=== PATIENT | female | born 1945 | race African-American/Black ===

== ENCOUNTER 2018-07-31 16:49 | Inpatient (IN) | payer OTHER ==
[~2018-07-31] VITALS: Ht 165.1 cm; Wt 71.7 kg
[2018-07-31 17:39] LABS: BASOPHILS % 0.8 % (0.0-2.0); EOSINOPHILS % 0.8 % (0.0-5.0); HEMATOCRIT. 23.6 % (36.0-48.0); HEMOGLOBIN. 7.8 g/dL (12.0-16.0); LYMPHOCYTES % 14.3 % (20.0-50.0); MEAN CORPUSCULAR HEMOGLOBIN 32.9 pg (28.0-32.0); MEAN CORPUSCULAR VOLUME 99.9 fL (81.0-99.0); MEAN PLATELET VOLUME 8.2 fl (7.4-10.4); MONOCYTES % 10.1 % (2.0-8.0); PLATELET 178 x1000/uL (130-400); RED BLOOD CELL COUNT 2.36 mill/uL (4.2-5.4); RED CELL DISTRIBUTION WIDTH 17.2 % (11.6-14.6)
[2018-07-31 17:45] LABS: CHLORIDE 97 mEq/L (98-107)
[2018-07-31 17:46] LABS: INR 1.2; PROTHROMBIN TIME 12.5 sec (9.1-11.1)
[2018-07-31 17:48] LABS: ETHANOL BLOOD < 10 mg/dL
[2018-07-31 17:55] LABS: LDL CHOLESTEROL 118 mg/dL (5-100)
[2018-07-31] MEDS ORDERED: CLOPIDOGREL 75MG TABLET PO NR (18:30)
[2018-07-31] MEDS ORDERED: ONDANSETRON HCL 4MG/2ML INJ IV PRN (22:00)
[2018-07-31] MEDS ORDERED: IPRATROPIUM/ALBUTEROL 0.5-3(2.5)MG/3ML NEB INH PRN (22:00)
[2018-07-31] MEDS ORDERED: DIPHENHYDRAMINE 50MG/ML VIAL IV PRN (22:00)
[2018-07-31] MEDS ORDERED: ACETAMINOPHEN 325MG TABLET PO PRN (22:00)
[2018-07-31] MEDS ORDERED: CLONIDINE 0.1MG TABLET PO PRN (22:00)
[2018-07-31] MEDS ORDERED: GUAIFENESIN 200MG/10ML SUGAR FREE UDC PO PRN (22:00)
[2018-08-01] VITALS: BP 142/69
[2018-08-01 04:00] VITALS: BP 148/75
[2018-08-01] MEDS: SODIUM CHLORIDE 0.9% INJ 3ML FLUSH IVF SCH ×3 (05:57→21:28)
[2018-08-01 08:00] VITALS: BP 144/77
[2018-08-01] MEDS: SERTRALINE HCL 100MG TABLET PO SCH (10:24)
[2018-08-01] MEDS: CLOPIDOGREL 75MG TABLET PO SCH (10:24)
[2018-08-01] MEDS: FOLIC ACID/VITAMIN B COMP W-C TABLET PO SCH (10:24)
[2018-08-01] MEDS ORDERED: SERT-112 PO (11:06)
[2018-08-01] MEDS ORDERED: LEVO100T9 PO (11:06)
[2018-08-01] MEDS ORDERED: CARV3.1242 PO (11:06)
[2018-08-01 12:00] VITALS: BP_SYST 130; BP_DIAS 64; BP_DIAS 78
[2018-08-01 16:00] VITALS: BP 129/61
[2018-08-01 20:00] VITALS: BP 162/80
[2018-08-01] MEDS: EPOETIN ALFA 10000UNITS/ML VIAL SUBCUT SCH (21:28)
[2018-08-01] MEDS: CARVEDILOL 3.125 MG TABLET PO SCH (21:29)
[2018-08-01] MEDS: IPRATROPIUM/ALBUTEROL 0.5-3(2.5)MG/3ML NEB INH SCH (22:12)
[2018-08-02] VITALS: BP 142/59
[2018-08-02] MEDS: IPRATROPIUM/ALBUTEROL 0.5-3(2.5)MG/3ML NEB INH SCH ×2 (02:00→21:09)
[2018-08-02 04:00] VITALS: BP 142/67
[2018-08-02] MEDS: SODIUM CHLORIDE 0.9% INJ 3ML FLUSH IVF SCH ×3 (05:20→20:21)
[2018-08-02 07:24] LABS: BASOPHILS % 0.8 % (0.0-2.0); EOSINOPHILS % 4.3 % (0.0-5.0); HEMATOCRIT. 21.8 % (36.0-48.0); HEMOGLOBIN. 7.3 g/dL (12.0-16.0); LYMPHOCYTES % 16.7 % (20.0-50.0); MEAN CORPUSCULAR HEMOGLOBIN 33.5 pg (28.0-32.0); MEAN CORPUSCULAR VOLUME 100.3 fL (81.0-99.0); MEAN PLATELET VOLUME 7.7 fl (7.4-10.4); NEUTROPHILS % 68.2 % (40.0-76.0); PLATELET 155 x1000/uL (130-400); RED BLOOD CELL COUNT 2.17 mill/uL (4.2-5.4); RED CELL DISTRIBUTION WIDTH 17.6 % (11.6-14.6)
[2018-08-02] MEDS ORDERED: LEVOTHYROXINE SODIUM 100MCG TABLET PO SCH (07:40)
[2018-08-02 08:03] LABS: PHOSPHORUS 3.9 mg/dL (2.5-4.9)
[2018-08-02 08:06] VITALS: BP 127/64
[2018-08-02] MEDS: CLOPIDOGREL 75MG TABLET PO SCH (08:07)
[2018-08-02] MEDS: SERTRALINE HCL 100MG TABLET PO SCH (08:07)
[2018-08-02] MEDS: FOLIC ACID/VITAMIN B COMP W-C TABLET PO SCH (08:07)
[2018-08-02] MEDS: CARVEDILOL 3.125 MG TABLET PO SCH (08:08)
[2018-08-02 12:00] VITALS: BP 108/63
[2018-08-02] MEDS ORDERED: IOHEXOL-300 100 ML BOTTLE ONE (12:32)
[2018-08-02 16:00] VITALS: BP 118/69
[2018-08-02 20:00] VITALS: BP 119/61
[2018-08-02] MEDS: ATORVASTATIN CALCIUM 20MG TABLET PO SCH (20:21)
[2018-08-03] VITALS: BP 122/68
[2018-08-03] MEDS: IPRATROPIUM/ALBUTEROL 0.5-3(2.5)MG/3ML NEB INH SCH ×4 (02:22→21:19)
[2018-08-03 04:00] VITALS: BP 108/72
[2018-08-03] MEDS: SODIUM CHLORIDE 0.9% INJ 3ML FLUSH IVF SCH ×3 (05:04→21:41)
[2018-08-03 07:30] LABS: BASOPHILS % 0.7 % (0.0-2.0); HEMATOCRIT. 22.9 % (36.0-48.0); HEMOGLOBIN. 7.6 g/dL (12.0-16.0); LYMPHOCYTES % 14.7 % (20.0-50.0); MEAN CORPUSCULAR HEMOGLOBIN 33.3 pg (28.0-32.0); MEAN CORPUSCULAR VOLUME 100.3 fL (81.0-99.0); MONOCYTES % 10.5 % (2.0-8.0); NEUTROPHILS % 68.1 % (40.0-76.0); PLATELET 166 x1000/uL (130-400); RED BLOOD CELL COUNT 2.28 mill/uL (4.2-5.4); RED CELL DISTRIBUTION WIDTH 17.4 % (11.6-14.6)
[2018-08-03] MEDS ORDERED: LEVOTHYROXINE SODIUM 50MCG TABLET PO SCH (07:40)
[2018-08-03 08:00] VITALS: BP 120/52
[2018-08-03 08:01] LABS: PHOSPHORUS 4.1 mg/dL (2.5-4.9)
[2018-08-03] MEDS: LEVOTHYROXINE SODIUM 100MCG TABLET PO SCH (09:42)
[2018-08-03] MEDS: CLOPIDOGREL 75MG TABLET PO SCH (09:42)
[2018-08-03] MEDS: SERTRALINE HCL 100MG TABLET PO SCH (09:42)
[2018-08-03] MEDS: FOLIC ACID/VITAMIN B COMP W-C TABLET PO SCH (09:42)
[2018-08-03 12:00] VITALS: BP 120/52
[2018-08-03 16:00] VITALS: BP 122/53
[2018-08-03 20:00] VITALS: BP 116/56
[2018-08-03] MEDS: EPOETIN ALFA 10000UNITS/ML VIAL SUBCUT SCH (21:41)
[2018-08-03] MEDS: ATORVASTATIN CALCIUM 20MG TABLET PO SCH (21:41)
[2018-08-03] MEDS ORDERED: IBUPROFEN 600MG TABLET PO PRN (22:15)
[2018-08-03] MEDS ORDERED: ACETAMINOPHEN WITH CODEINE 300/30MG TABLET PO PRN (22:15)
[2018-08-03] MEDS ORDERED: HYDROCODONE/ACETAMINOPHEN 5/325MG TABLET PO PRN (22:45)
[2018-08-04] MEDS: IPRATROPIUM/ALBUTEROL 0.5-3(2.5)MG/3ML NEB INH SCH ×4 (03:25→20:01)
[2018-08-04] MEDS: SODIUM CHLORIDE 0.9% INJ 3ML FLUSH IVF SCH ×2 (06:17→21:14)
[2018-08-04 07:50] LABS: PHOSPHORUS 3.1 mg/dL (2.5-4.9)
[2018-08-04] MEDS: LEVOTHYROXINE SODIUM 100MCG TABLET PO SCH (07:56)
[2018-08-04] MEDS: FOLIC ACID/VITAMIN B COMP W-C TABLET PO SCH (07:56)
[2018-08-04] MEDS: CLOPIDOGREL 75MG TABLET PO SCH (07:56)
[2018-08-04] MEDS: SERTRALINE HCL 100MG TABLET PO SCH (07:57)
[2018-08-04 08:00] VITALS: BP 102/69
[2018-08-04 08:27] LABS: BASOPHILS % 0.5 % (0.0-2.0); EOSINOPHILS % 1.8 % (0.0-5.0); HEMATOCRIT. 24.8 % (36.0-48.0); HEMOGLOBIN. 8.2 g/dL (12.0-16.0); LYMPHOCYTES % 14.7 % (20.0-50.0); MEAN CORPUSCULAR HEMOGLOBIN 33.1 pg (28.0-32.0); MEAN CORPUSCULAR VOLUME 100.6 fL (81.0-99.0); MEAN PLATELET VOLUME 8.3 fl (7.4-10.4); MONOCYTES % 10.8 % (2.0-8.0); NEUTROPHILS % 72.2 % (40.0-76.0); PLATELET 181 x1000/uL (130-400); RED BLOOD CELL COUNT 2.47 mill/uL (4.2-5.4); RED CELL DISTRIBUTION WIDTH 17.2 % (11.6-14.6)
[2018-08-04 12:00] VITALS: BP 136/80
[2018-08-04 16:00] VITALS: BP_SYST 126; BP_SYST 128; BP_DIAS 110; BP_DIAS 69
[2018-08-04 20:00] VITALS: BP 124/68
[2018-08-04] MEDS: ATORVASTATIN CALCIUM 20MG TABLET PO SCH (21:21)
[2018-08-05] MEDS: IPRATROPIUM/ALBUTEROL 0.5-3(2.5)MG/3ML NEB INH SCH ×3 (01:05→20:57)
[2018-08-05] MEDS: SODIUM CHLORIDE 0.9% INJ 3ML FLUSH IVF SCH ×2 (05:54→21:59)
[2018-08-05 07:07] LABS: BASOPHILS % 0.5 % (0.0-2.0); EOSINOPHILS % 1.1 % (0.0-5.0); HEMATOCRIT. 23.7 % (36.0-48.0); HEMOGLOBIN. 7.7 g/dL (12.0-16.0); LYMPHOCYTES % 15.8 % (20.0-50.0); MEAN CORPUSCULAR HEMOGLOBIN 32.9 pg (28.0-32.0); MEAN CORPUSCULAR VOLUME 100.6 fL (81.0-99.0); MEAN PLATELET VOLUME 8.3 fl (7.4-10.4); MONOCYTES % 9.3 % (2.0-8.0); NEUTROPHILS % 73.3 % (40.0-76.0); PLATELET 185 x1000/uL (130-400); RED BLOOD CELL COUNT 2.36 mill/uL (4.2-5.4); RED CELL DISTRIBUTION WIDTH 17.4 % (11.6-14.6)
[2018-08-05 08:00] VITALS: BP 151/68
[2018-08-05] MEDS ORDERED: PREDNISONE 20MG TABLET PO NR (08:45)
[2018-08-05 08:56] LABS: PHOSPHORUS 3.8 mg/dL (2.5-4.9)
[2018-08-05] MEDS: CLOPIDOGREL 75MG TABLET PO SCH (09:04)
[2018-08-05] MEDS: SERTRALINE HCL 100MG TABLET PO SCH (09:04)
[2018-08-05] MEDS: FOLIC ACID/VITAMIN B COMP W-C TABLET PO SCH (09:04)
[2018-08-05] MEDS: LEVOTHYROXINE SODIUM 100MCG TABLET PO SCH (09:04)
[2018-08-05 12:00] VITALS: BP 153/67
[2018-08-05 16:00] VITALS: BP 140/74
[2018-08-05 20:00] VITALS: BP 146/67
[2018-08-05 21:07] VITALS: BP 146/67
[2018-08-05] MEDS: ATORVASTATIN CALCIUM 20MG TABLET PO SCH (21:17)
[2018-08-06] VITALS (8 sets, daily range): BP systolic 128–149; BP diastolic 62–94
[2018-08-06] MEDS: IPRATROPIUM/ALBUTEROL 0.5-3(2.5)MG/3ML NEB INH SCH ×4 (01:06→21:10)
[2018-08-06] MEDS: LEVOTHYROXINE SODIUM 100MCG TABLET PO SCH (06:20)
[2018-08-06] MEDS: SODIUM CHLORIDE 0.9% INJ 3ML FLUSH IVF SCH ×3 (06:21→18:51)
[2018-08-06] MEDS ORDERED: PREDNISONE 20MG TABLET PO SCH (09:00)
[2018-08-06] MEDS: SERTRALINE HCL 100MG TABLET PO SCH (10:15)
[2018-08-06] MEDS: FOLIC ACID/VITAMIN B COMP W-C TABLET PO SCH (10:15)
[2018-08-06] MEDS: CLOPIDOGREL 75MG TABLET PO SCH (10:15)
[2018-08-06] MEDS: EPOETIN ALFA 10000UNITS/ML VIAL SUBCUT SCH (21:35)
[2018-08-06] MEDS: ATORVASTATIN CALCIUM 20MG TABLET PO SCH (21:35)
== END 2018-08-06 22:30 | disposition home health service (06) | DRG 64 ==
LOC: ER 16:49 → EDBEDREQ 19:37 → EDBEDREQSVC 19:37 → EDBEDREQTM 19:37 → ENRESERV 20:51 → 7WST 23:41
PROVIDERS: ADMIT Internal Medicine; ATTEND Internal Medicine
PROC: 5A1D70Z Performance of Urinary Filtration, Intermittent, Less than 6 Hours Per Day (ICD-10-PCS; principal; 2018-08-01)
PROC: 5A1D70Z Performance of Urinary Filtration, Intermittent, Less than 6 Hours Per Day (ICD-10-PCS; 2018-08-02)
PROC: 5A1D70Z Performance of Urinary Filtration, Intermittent, Less than 6 Hours Per Day (ICD-10-PCS; 2018-08-05)
DX: I63.9 Cerebral infarction, unspecified (principal); N18.6 End stage renal disease; E43 Unspecified severe protein-calorie malnutrition; I13.2 Hypertensive heart and chronic kidney disease with heart failure and with stage 5 chronic kidney disease, or end stage renal disease; F03.90 Unspecified dementia, unspecified severity, without behavioral disturbance, psychotic disturbance, mood disturbance, and anxiety; K21.9 Gastro-esophageal reflux disease without esophagitis; Z96.651 Presence of right artificial knee joint; E03.9 Hypothyroidism, unspecified; G62.9 Polyneuropathy, unspecified; J98.01 Acute bronchospasm; I50.9 Heart failure, unspecified; E66.9 Obesity, unspecified; D64.9 Anemia, unspecified; F32.9 Major depressive disorder, single episode, unspecified; G89.29 Other chronic pain; M19.90 Unspecified osteoarthritis, unspecified site; I73.9 Peripheral vascular disease, unspecified; I48.91 Unspecified atrial fibrillation; H91.92 Unspecified hearing loss, left ear; Z53.1 Procedure and treatment not carried out because of patient's decision for reasons of belief and group pressure; Z88.2 Allergy status to sulfonamides; Z80.0 Family history of malignant neoplasm of digestive organs; Z82.49 Family history of ischemic heart disease and other diseases of the circulatory system; Z86.73 Personal history of transient ischemic attack (TIA), and cerebral infarction without residual deficits; Z87.01 Personal history of pneumonia (recurrent); Z87.891 Personal history of nicotine dependence; Z88.5 Allergy status to narcotic agent; Z68.26 Body mass index [BMI] 26.0-26.9, adult; Z99.3 Dependence on wheelchair; Z88.8 Allergy status to other drugs, medicaments and biological substances; Z88.6 Allergy status to analgesic agent; Z90.710 Acquired absence of both cervix and uterus; Z99.2 Dependence on renal dialysis; Z95.5 Presence of coronary angioplasty implant and graft; Z95.810 Presence of automatic (implantable) cardiac defibrillator
CPT/HCPCS: 36415; 71045; 71260; 80048; 80061; 80320; 82270; 82962; 83605; 83721; 83735; 83880; 84100; 84443; 84484; 92610; 93005; 93306; 93880; 94640; 97162; 97166; 99291; J0885; J7512; J7620; Q9967; G0480

== ENCOUNTER 2018-08-17 09:17 | Inpatient (IN) | payer MEDICARE, OTHER ==
[~2018-08-17] VITALS: Ht 162.6 cm; Wt 72.6 kg
[2018-08-17] VITALS (34 sets, daily range): BP systolic 64–135; BP diastolic 34–71
[~2018-08-17 09:17] MED LIST: CARV3.1242 PO; LEVO100T9 PO; SERT-112 PO
[2018-08-17] MEDS ORDERED: albuterol (09:42)
[2018-08-17] MEDS ORDERED: CLOP75TA33 PO (09:42)
[2018-08-17] MEDS ORDERED: PRED10TA PO (09:42)
[2018-08-17] MEDS ORDERED: ATOR20TA65 PO (09:42)
[2018-08-17] MEDS ORDERED: promethazine (09:42)
[2018-08-17 10:28] LABS: HEMATOCRIT. 27.1 % (36.0-48.0); HEMOGLOBIN. 8.5 g/dL (12.0-16.0); LYMPHOCYTES % 8.9 % (20.0-50.0); MEAN CORPUSCULAR HEMOGLOBIN 34.2 pg (28.0-32.0); MEAN CORPUSCULAR VOLUME 108.8 fL (81.0-99.0); MEAN PLATELET VOLUME 8.7 fl (7.4-10.4); NEUTROPHILS % 82.1 % (40.0-76.0); PLATELET 214 x1000/uL (130-400); RED BLOOD CELL COUNT 2.49 mill/uL (4.2-5.4); RED CELL DISTRIBUTION WIDTH 23.8 % (11.6-14.6)
[2018-08-17 10:33] LABS: CHLORIDE 92 mEq/L (98-107)
[2018-08-17 10:46] LABS: PLATELET ESTIMATE NORMAL
[2018-08-17] MEDS ORDERED: ALBUTEROL (0.083%) 2.5MG/3ML NEB HHN NR (10:54)
[2018-08-17] MEDS ORDERED: IPRATROPIUM BROMIDE (0.02%) 0.5MG/2.5ML NEB HHN NR (10:55)
[2018-08-17] MEDS ORDERED: CEFTRIAXONE 1 G PREMIX 50 ML IV ONE (11:00)
[2018-08-17] MEDS ORDERED: SODIUM CHLORIDE 0.9% 1000ML BAG (SEPSIS BOLUS) IV ONE (11:00)
[2018-08-17] MEDS ORDERED: PIPERACILLIN/TAZ 3.375G PREMIX 50 ML IV ONE (15:30)
[2018-08-17] MEDS ORDERED: VANCOMYCIN 1 G PREMIX 200 ML IV SCH (15:30)
[2018-08-17] MEDS ORDERED: VANCOMYCIN 1,250 MG in DEXT 5% WATER 250 ML IV SCH (16:00)
[2018-08-17 18:28] LABS: T4 FREE 1.06 ng/dL (0.76-1.46)
[2018-08-17] MEDS ORDERED: DEXT 5%/0.45% NACL 1000ML 1,000 ML IV SCH (18:40)
[2018-08-17] MEDS ORDERED: IPRATROPIUM/ALBUTEROL 0.5-3(2.5)MG/3ML NEB INH PRN (18:45)
[2018-08-17] MEDS ORDERED: ACETAMINOPHEN 650MG SUPP PR PRN (18:45)
[2018-08-17] MEDS ORDERED: ONDANSETRON HCL 4MG/2ML INJ IV PRN (18:45)
[2018-08-17] MEDS ORDERED: DIPHENHYDRAMINE 50MG/ML VIAL IV PRN (18:45)
[2018-08-17] MEDS: DEXT 5%/0.45% NACL 1000ML 1,000 ML IV SCH (19:20)
[2018-08-18] VITALS (80 sets, daily range): BP systolic 87–143; BP diastolic 45–98
[2018-08-18 04:41] LABS: HEMATOCRIT. 30.5 % (36.0-48.0); MEAN CORPUSCULAR HEMOGLOBIN 34.4 pg (28.0-32.0); MEAN CORPUSCULAR VOLUME 105.2 fL (81.0-99.0); MEAN PLATELET VOLUME 8.6 fl (7.4-10.4); PLATELET 198 x1000/uL (130-400); RED CELL DISTRIBUTION WIDTH 23.1 % (11.6-14.6)
[2018-08-18 04:53] LABS: CHLORIDE 101 mEq/L (98-107)
[2018-08-18 05:02] LABS: PHOSPHORUS 3.4 mg/dL (2.5-4.9)
[2018-08-18] MEDS: PIPERACILLIN/TAZ 2.25G PREMIX 50 ML IV SCH ×2 (05:11→17:18)
[2018-08-18] MEDS: PANTOPRAZOLE SODIUM 40 MG/VIAL IV SCH (09:00)
[2018-08-18] MEDS ORDERED: VANCOMYCIN 1 G PREMIX 200 ML IV NR (13:00)
[2018-08-18 14:27] LABS: PLATELET ESTIMATE NORMAL
[2018-08-18] MEDS: DEXT 5%/0.45% NACL 1000ML 1,000 ML IV SCH (21:54)
[2018-08-19] VITALS (65 sets, daily range): BP systolic 31–189; BP diastolic 19–96
[2018-08-19] MEDS: PIPERACILLIN/TAZ 2.25G PREMIX 50 ML IV SCH ×2 (05:42→17:28)
[2018-08-19 05:43] LABS: HEMATOCRIT. 28.9 % (36.0-48.0); HEMOGLOBIN. 9.2 g/dL (12.0-16.0); MEAN CORPUSCULAR HEMOGLOBIN 34.5 pg (28.0-32.0); MEAN CORPUSCULAR VOLUME 108.3 fL (81.0-99.0); PLATELET 149 x1000/uL (130-400); RED BLOOD CELL COUNT 2.67 mill/uL (4.2-5.4); RED CELL DISTRIBUTION WIDTH 22.8 % (11.6-14.6)
[2018-08-19 08:09] LABS: CHLORIDE 100 mEq/L (98-107)
[2018-08-19 08:15] LABS: PHOSPHORUS 5.2 mg/dL (2.5-4.9)
[2018-08-19] MEDS: PANTOPRAZOLE SODIUM 40 MG/VIAL IV SCH (08:17)
[2018-08-19] MEDS ORDERED: CALCIUM CHLORIDE 1GM/10ML SYR IV ONE (09:01)
[2018-08-19] MEDS ORDERED: SODIUM BICARBONATE 8.4% MEQ/ML 50ML VIAL IV ONE (09:01)
[2018-08-19] MEDS ORDERED: MAGNESIUM SULFATE 4G IN WATER 100ML PREMIX IV ONE (09:01)
[2018-08-19] MEDS ORDERED: AMIODARONE HCL 50MG/ML 3ML VIAL IV ONE (09:01)
[2018-08-19] MEDS ORDERED: EPINEPHRINE 0.1MG/ML (1:10,000) 10ML SYR ONE (09:01)
[2018-08-19 09:10] LABS: NUCLEATED RED BLOOD CELLS 8 /100 WBC
[2018-08-19 09:11] LABS: PLATELET ESTIMATE NORMAL
[2018-08-19] MEDS: IPRATROPIUM/ALBUTEROL 0.5-3(2.5)MG/3ML NEB HHN SCH ×3 (12:00→20:06)
[2018-08-19 13:50] LABS: VITAMIN B12 SERUM >2000 pg/mL pg/mL (211-911)
[2018-08-19] MEDS ORDERED: SODIUM CHLORIDE 0.9% 500 ML IV ONE (17:30)
[2018-08-19] MEDS ORDERED: DEXT 5%/0.45% NACL 1000ML 1,000 ML IV SCH (22:30)
[2018-08-19] MEDS ORDERED: PHENYLEPHRINE 20 MG in DEXT 5% WATER 248 ML IV PRN ×2 (23:00→23:15)
[2018-08-19] MEDS ORDERED: AMIODARONE HCL 900 MG in DEXT 5% WATER 500 ML IV NR (23:00)
[2018-08-19] MEDS ORDERED: NOREPINEPHRINE 8 MG in DEXT 5% WATER 242 ML IV PRN (23:00)
== END 2018-08-20 02:05 | disposition expired | DRG 871 ==
LOC: ER 09:17 → MICUSO 13:44 → CANRESERV 15:35 → ENRESERV 15:35 → EDBEDREQSVC 15:38 → ENRESERV 16:09
PROVIDERS: ADMIT Internal Medicine; ATTEND Internal Medicine
PROC: 5A1D70Z Performance of Urinary Filtration, Intermittent, Less than 6 Hours Per Day (ICD-10-PCS; principal; 2018-08-17)
PROC: 0BH17EZ Insertion of Endotracheal Airway into Trachea, Via Natural or Artificial Opening (ICD-10-PCS; 2018-08-19)
PROC: 5A1935Z Respiratory Ventilation, Less than 24 Consecutive Hours (ICD-10-PCS; 2018-08-19)
PROC: 5A12012 Performance of Cardiac Output, Single, Manual (ICD-10-PCS; 2018-08-19)
PROC: 5A2204Z Restoration of Cardiac Rhythm, Single (ICD-10-PCS; 2018-08-19)
PROC: 5A1D70Z Performance of Urinary Filtration, Intermittent, Less than 6 Hours Per Day (ICD-10-PCS; 2018-08-19)
DX: A41.9 Sepsis, unspecified organism (principal); G93.41 Metabolic encephalopathy; N18.6 End stage renal disease; K72.00 Acute and subacute hepatic failure without coma; E43 Unspecified severe protein-calorie malnutrition; R65.21 Severe sepsis with septic shock; J69.0 Pneumonitis due to inhalation of food and vomit; J96.00 Acute respiratory failure, unspecified whether with hypoxia or hypercapnia; I50.23 Acute on chronic systolic (congestive) heart failure; I63.9 Cerebral infarction, unspecified; I13.2 Hypertensive heart and chronic kidney disease with heart failure and with stage 5 chronic kidney disease, or end stage renal disease; D68.59 Other primary thrombophilia; E87.5 Hyperkalemia; Z96.651 Presence of right artificial knee joint; L89.150 Pressure ulcer of sacral region, unstageable; M19.90 Unspecified osteoarthritis, unspecified site; D53.9 Nutritional anemia, unspecified; E03.9 Hypothyroidism, unspecified; I49.01 Ventricular fibrillation; F03.90 Unspecified dementia, unspecified severity, without behavioral disturbance, psychotic disturbance, mood disturbance, and anxiety; K21.9 Gastro-esophageal reflux disease without esophagitis; I46.9 Cardiac arrest, cause unspecified; I27.20 Pulmonary hypertension, unspecified; I73.9 Peripheral vascular disease, unspecified; Z66 Do not resuscitate; Z53.1 Procedure and treatment not carried out because of patient's decision for reasons of belief and group pressure; G62.9 Polyneuropathy, unspecified; I48.91 Unspecified atrial fibrillation; J44.9 Chronic obstructive pulmonary disease, unspecified; Z87.01 Personal history of pneumonia (recurrent); Z86.73 Personal history of transient ischemic attack (TIA), and cerebral infarction without residual deficits; Z99.2 Dependence on renal dialysis; Z95.0 Presence of cardiac pacemaker; Z90.710 Acquired absence of both cervix and uterus; Z88.5 Allergy status to narcotic agent; Z88.6 Allergy status to analgesic agent; Z88.2 Allergy status to sulfonamides; Z82.49 Family history of ischemic heart disease and other diseases of the circulatory system; Z80.0 Family history of malignant neoplasm of digestive organs; Z87.891 Personal history of nicotine dependence; Z68.27 Body mass index [BMI] 27.0-27.9, adult
CPT/HCPCS: 31500; 36415; 71045; 76700; 80202; 82140; 82607; 82746; 82962; 83605; 83735; 83880; 84100; 84134; 84439; 84443; 84484; 92610; 93005; 94640; 99291; C9113; J0282; J0696; J2543; J3370; J3475; J3490; J7030; J7040; J7060; J7611; J7620; A4315